=== PATIENT | female | born 1990 | race Caucasian/White ===

== ENCOUNTER → 2021-08-18 | Outpatient (CLI) | payer OTHER, SELFPAY ==
[2021-08-18 16:37] LABS: Amphetamine Urine VISTA NEGATIVE (<1000 ng/mL); Barbiturate Urine VISTA NEGATIVE (< 200 ng/mL); Benzodiazepine Urine VISTA NEGATIVE (< 200 ng/mL); Cocaine Urine VISTA NEGATIVE (< 300 ng/mL); Ecstacy Urine VISTA NEGATIVE (< 500 ng/mL); Methadone Urine VISTA NEGATIVE (< 300 ng/mL); PCP Urine VISTA NEGATIVE (< 25 ng/mL); THC Urine VISTA NEGATIVE (< 50 ng/mL); Vista UDS pH Range 4
[2021-08-20 21:07] LABS: Chlamydia By Nucleic Acid AMP Positive (Negative)
[2021-08-20 21:22] LABS: Gonococcus By Nucleic Acid AMP Negative (Negative)
[2021-08-26 16:16] LABS: HPV Reflexed? NOT INDICATED
== END | disposition home or self-care (01) ==
LOC: LABSPEC 16:03
PROVIDERS: Referring Provider Obstetrics & Gynecology; Visit Provider Obstetrics & Gynecology
DX: Z34.00 Encounter for supervision of normal first pregnancy, unspecified trimester (principal)
CPT/HCPCS: 80307; 87086; 87088; 87491; 87591; 88175; G0145

== ENCOUNTER → 2021-08-21 | Outpatient (CLI) | payer OTHER, SELFPAY ==
[2021-08-21 13:28] LABS: Absolute Neutrophil Count 7.2 X10^3/uL (2.0-7.7); Basophil# 0.05 X10^3/uL; Basophil% 0.5 % (0-1); Eosinophil# 0.07 X10^3/uL; Eosinophils% 0.7 % (0-5); Hematocrit 36.7 % (37-47); Hemoglobin 13.1 g/dL (12.0-15.0); Lymphocyte % 14.8 % (19-41); Mean Corp Hgb Conc 35.7 g/dL (32-36); Mean Corpuscular Hgb 31.5 pg (27.0-32.0); Mean Corpuscular Volume 88.2 fL (81-99); Mean Platelet Vol. 9.6 fl (6.2-12.0); Monocyte# 0.66 X10^3/uL; NRBC Flagged by Analyzer 0 % (0-5); Neutrophil # 7.22 X10^3/uL (2.7-7.7); Neutrophil % 76.7 % (47-70); Platelet Count 231 K/mm3 (150-450); RBC Distribution Width CV 12.7 % (11.6-14.6); RBC Distribution Width SD 41.2 fl (35.1-43.9); Red Blood Count 4.16 M/mm3 (4.2-5.4); White Blood Count 9.4 K/mm3 (4.4-11.0)
[2021-08-21 14:33] LABS: HIV - WCH Non-Reactive (Nonreactive); Hepatitis B Surface Antigen Non-Reactive (Nonreactive); Hepatitis C Antibody Non-Reactive (Nonreactive); Rubella IgG Reactive (Nonreactive); Syphilis Antibodies Non-reactive
== END | disposition home or self-care (01) ==
LOC: PAVLAB 13:08
PROVIDERS: Referring Provider Obstetrics & Gynecology; Visit Provider Obstetrics & Gynecology
DX: Z34.00 Encounter for supervision of normal first pregnancy, unspecified trimester (principal)
CPT/HCPCS: 36415; 85025; 86703; 86762; 86780; 86803; 86850; 86900; 86901; 87340

== ENCOUNTER → 2021-09-12 | Outpatient (CLI) | payer OTHER, SELFPAY ==
[2021-09-15 21:06] LABS: Chlamydia By Nucleic Acid AMP Negative (Negative)
[2021-09-15 21:40] LABS: Gonococcus By Nucleic Acid AMP Negative (Negative)
== END | disposition home or self-care (01) ==
LOC: LABSPEC 09-15 07:52
PROVIDERS: Visit Provider Obstetrics & Gynecology
DX: O98.819 Other maternal infectious and parasitic diseases complicating pregnancy, unspecified trimester (principal); A74.9 Chlamydial infection, unspecified; Z3A.00 Weeks of gestation of pregnancy not specified
CPT/HCPCS: 87491; 87591

== ENCOUNTER → 2021-12-30 | Outpatient (CLI) | payer OTHER, SELFPAY ==
[2021-12-30 11:20] LABS: Absolute Lymphocyte Count 1.28 X10^3/uL (0.83-4.51); Absolute Neutrophil Count 6.7 X10^3/uL (2.0-7.7); Basophil# 0.03 X10^3/uL; Basophil% 0.3 % (0-1); Eosinophil# 0.13 X10^3/uL; Eosinophils% 1.4 % (0-5); Hemoglobin 11.6 g/dL (12.0-15.0); Lymphocyte # 1.28 X10^3/ul (0.83-4.51); Lymphocyte % 14.2 % (19-41); Mean Corp Hgb Conc 36.3 g/dL (32-36); Mean Corpuscular Hgb 34.4 pg (27.0-32.0); Mean Platelet Vol. 9.7 fl (6.2-12.0); Monocyte# 0.79 X10^3/uL; Monocyte% 8.8 % (0-10); NRBC Flagged by Analyzer 0 % (0-5); Neutrophil % 74.5 % (47-70); Platelet Count 165 K/mm3 (150-450); RBC Distribution Width CV 13.5 % (11.6-14.6); RBC Distribution Width SD 46.5 fl (35.1-43.9); Red Blood Count 3.37 M/mm3 (4.2-5.4)
[2021-12-30 11:39] LABS: Glucose Challenge Gest 1H 50g 122 mg/dL (70-140)
--- NOTE | 2021-12-30 12:10 | US_ITS ---
STUDY: SECOND AND THIRD TRIMESTER OBSTETRICAL ULTRASOUND - TWIN REASON FOR EXAM: Female, 31 years old. LMP: 06/16/2021. Growth. TECHNIQUE: Transabdominal TECHNICAL QUALITY: Adequate. COMPARISON: None. FINDINGS: There are two intrauterine fetuses. Two discrete placenta common consistent with a dichorionic . The placenta for baby A is posterior in location and grade 0 in appearance. The placenta for baby B is anterior in location and grade 0 in appearance The amniotic membrane cannot be visualized. There is a normal amniotic fluid volume within each amniotic sac. The uterine wall is normal. There is a competent closed cervical os. The cervix measures 3.8 cm in length. The bilateral adnexal regions are visualized. Fetus A demonstrates cardiac activity with a heart rate of 138 bpm. Fetus ?A? is in a cephalic presentation. Fetus B demonstrates cardiac activity with a heart rate of 123 bpm. Fetus B is in a transverse position with head to the maternal right. FETUS A BIOMETRY: BPD: 7.2 cm: 28 weeks, 6 days HC: 25.73 cm: 28 weeks, 0 days AC: 23.44 cm: 27 weeks, 5 days FL: 4.85 cm: 26 weeks, 2 days CI: 83.07 FL/BPD: 67.42 FL/HC: 18.87 FL/AC: 20.71 HC/AC: 1.1 age by current US: 27 weeks, 1 days. SONDRA by current US: 03/28/2022. Estimated weight: 1084 grams, +/- 163 grams, 18 % Age by LMP: 28 weeks, 1 days. SONDRA by LMP: 03/23/2020. FETUS B BIOMETRY: BPD: 6.92 cm: 27 weeks, 6 days HC: 25.63 cm: 27 weeks, 6 days AC: 22.33 cm: 26 weeks, 5 days FL: 5.02 cm: 27 weeks, 0 days CI: 81.80 FL/BPD: 72.52 FL/HC: 19.5 FL/AC: 22.48 HC/AC: 1.15 age by current US: 27 weeks, 0 days. SONDRA by current US: 03/31/2022. Estimated weight: 018 grams, +/- 153 grams, 9.3 %. Age by LMP: 28 weeks, 1 days. SONDRA by LMP: 03/23/2022.. IMPRESSION: 1. Live dichorionic twin intrauterine . 2. Baby A demonstrates a gestational age of 27 weeks, 1 day. SONDRA is 03/28/2022. EFW of 1084 g Posterior grade 0 placenta. Vertex presentation. 3. Baby B demonstrates a mean gestational age of 27 weeks 0 days with an SONDRA of 03/31/2022. EFW 1018 g. Anterior grade 0 placenta. Transverse presentation with head to maternal right. Electronically Signed: Al Coleman DO at 23:38 EDT , STUDY: SECOND AND THIRD TRIMESTER OBSTETRICAL ULTRASOUND - TWIN REASON FOR EXAM: Female, 31 years old. LMP: 06/16/2021. Growth. TECHNIQUE: Transabdominal TECHNICAL QUALITY: Adequate. COMPARISON: None. FINDINGS: There are two intrauterine fetuses. Two discrete placenta common consistent with a dichorionic . The placenta for baby A is posterior in location and grade 0 in appearance. The placenta for baby B is anterior in location and grade 0 in appearance The amniotic membrane cannot be visualized. There is a normal amniotic fluid volume within each amniotic sac. The uterine wall is normal. There is a competent closed cervical os. The cervix measures 3.8 cm in length. The bilateral adnexal regions are visualized. Fetus A demonstrates cardiac activity with a heart rate of 138 bpm. Fetus ?A? is in a cephalic presentation. Fetus B demonstrates cardiac activity with a heart rate of 123 bpm. Fetus B is in a transverse position with head to the maternal right. FETUS A BIOMETRY: BPD: 7.2 cm: 28 weeks, 6 days HC: 25.73 cm: 28 weeks, 0 days AC: 23.44 cm: 27 weeks, 5 days FL: 4.85 cm: 26 weeks, 2 days CI: 83.07 FL/BPD: 67.42 FL/HC: 18.87 FL/AC: 20.71 HC/AC: 1.1 age by current US: 27 weeks, 1 days. SONDRA by current US: 03/28/2022. Estimated weight: 1084 grams, +/- 163 grams, 18 % Age by LMP: 28 weeks, 1 days. SONDRA by LMP: 03/23/2020. FETUS B BIOMETRY: BPD: 6.92 cm: 27 weeks, 6 days HC: 25.63 cm: 27 weeks, 6 days AC: 22.33 cm: 26 weeks, 5 days FL: 5.02 cm: 27 weeks, 0 days CI: 81.80 FL/BPD: 72.52 FL/HC: 19.5 FL/AC: 22.48 HC/AC: 1.15 age by current US: 27 weeks, 0 days. SONDRA by current US: 03/31/2022. Estimated weight: 018 grams, +/- 153 grams, 9.3 %. Age by LMP: 28 weeks, 1 days. SONDRA by LMP: 03/23/2022.. US/OB Limited With Biometrics IMPRESSION: 1. Live dichorionic twin intrauterine . 2. Baby A demonstrates a gestational age of 27 weeks, 1 day. SONDRA is 03/28/2022. EFW of 1084 g Posterior grade 0 placenta. Vertex presentation. 3. Baby B demonstrates a mean gestational age of 27 weeks 0 days with an SONDRA of 03/31/2022. EFW 1018 g. Anterior grade 0 placenta. Transverse presentation with head to maternal right. Electronically Signed: Al Coleman DO at 23:38 EDT Reading Location ID and State: [address] [place] [address] Tel [phone], Service support ,
== END | disposition home or self-care (01) ==
LOC: US 12:09
PROVIDERS: Referring Provider Obstetrics & Gynecology; Visit Provider Obstetrics & Gynecology
DX: O30.009 Twin pregnancy, unspecified number of placenta and unspecified number of amniotic sacs, unspecified trimester (principal); Z3A.25 25 weeks gestation of pregnancy
CPT/HCPCS: 36415; 76816; 82950; 85025

== ENCOUNTER 2022-02-23 11:45 | Outpatient (CLI) | payer OTHER, SELFPAY ==
[2022-02-23 12:03] VITALS: BP 102/61; PULSE 80
[2022-02-23 12:05] VITALS: BMI 26.5
--- NOTE | 2022-02-23 12:12 | US_ITS ---
STUDY: OBSTETRICAL ULTRASOUND - BIOPHYSICAL PROFILE REASON FOR EXAM: Female, 31 years old twin gestation . Twin A LMP: 06/16/2021. PRIOR ULTRASOUND: Comparison is made with prior study 12/30/2021. TECHNIQUE: Transabdominal TECHNICAL QUALITY: Adequate. FINDINGS: There is a single intrauterine fetus. The fetus is in a cephalic presentation. There is demonstrated cardiac activity with a heart rate of 133 bpm. There is a normal amniotic fluid volume. The largest amniotic fluid pocket measures 4.75 cm. The amniotic fluid index (BISI) is within normal limits. cm. The placenta is posterior in location and is not low lying. There are Grade 2 placental changes. Age by LMP: 36 weeks, 0 days. SONDRA by LMP: 03/23/2022. age by prior US: 35 weeks, 2 days. SONDRA by prior US: 03/28/2022. BIOPHYSICAL PROFILE: Breathing Movements (FBM): 2 Gross Body Movements (GBM): 2 Tone (FT): 2 Amniotic Fluid Volume (AFV): 2 TOTAL SCORE: 8 / 8 IMPRESSION: Normal biophysical profile of 11/17. Electronically Signed: Hamlet Diop MD at 14:31 EST , STUDY: OBSTETRICAL ULTRASOUND - BIOPHYSICAL PROFILE REASON FOR EXAM: Female, 31 years old twin gestation . . Twin B. LMP: 06/16/2021 PRIOR ULTRASOUND: Comparison is made with prior study 12/30/2021. TECHNIQUE: Transabdominal TECHNICAL QUALITY: Adequate. FINDINGS: There is a single intrauterine fetus. The fetus is in an transverse lie with the head on the maternal left side. There is demonstrated cardiac activity with a heart rate of 138 bpm. There is a normal amniotic fluid volume. The largest amniotic fluid pocket measures 4.33 cm. The amniotic fluid index (BISI) is within normal limits. The placenta is anterior in location and is not low lying. There are Grade 1 placental changes. Age by LMP: 36 weeks, 0 days. SONDRA by LMP: 03/23/2022. age by prior US: 35 weeks, 2 days. SONDRA by prior US: 03/28/2022. BIOPHYSICAL PROFILE: Breathing Movements (FBM): 2 Gross Body Movements (GBM): 2 Tone (FT): 2 Amniotic Fluid Volume (AFV): 2 TOTAL SCORE: US/Biophysical Prof W/O Non Stres IMPRESSION: Normal biophysical profile of 11/17. Electronically Signed: Hamlet Diop MD at 14:32 EST ,
[2022-02-25 22:07] LABS: Chlamydia By Nucleic Acid AMP Negative (Negative)
[2022-02-26 15:48] LABS: Gonococcus By Nucleic Acid AMP Negative (Negative)
== END 2022-02-23 14:22 | disposition home or self-care (01) ==
LOC: WPOUT 11:47 → WP 11:47
PROVIDERS: Obstetrics & Gynecology; Referring Provider Registered Nurse; Visit Provider Registered Nurse
DX: O30.003 Twin pregnancy, unspecified number of placenta and unspecified number of amniotic sacs, third trimester (principal); Z3A.35 35 weeks gestation of pregnancy
CPT/HCPCS: 59025; 59050; 76819; 87081; 87491; 87591

== ENCOUNTER → 2022-03-02 | Outpatient (CLI) | payer OTHER, SELFPAY ==
--- NOTE | 2022-03-02 11:26 | US_ITS ---
EXAM: US BIOPHYSICAL PROFILE WITHOUT NON-STRESS TESTING CLINICAL INDICATION: twins TECHNIQUE: Real-time ultrasound of the maternal pelvis for biophysical profile evaluation with image documentation. This report was created using rScriptor report generation technology. COMPARISON: None. FINDINGS: BREATHING MOVEMENTS: Present. Score 2/2. GROSS BODY MOVEMENTS: Present. Score 2/2. TONE: Present. Score 2/2. QUALITATIVE AMNIOTIC FLUID VOLUME: See below. PRESENTATION: Twin A is in cephalic presentation with cardiac rate of 129 bpm. Fundal placenta. Amniotic fluid index is normal with largest amniotic pocket measuring 5.8 x 4.1 cm. Biophysical profile score is 8/8. Twin B is in cephalic presentation with cardiac rate of 148 bpm. Anterior placenta. Amniotic fluid index is normal with largest pocket measuring 9.1 x 4.4 cm. Biophysical profile score is 8/8. IMPRESSION: Normal biophysical profile for twin gestation. Electronically Signed: Antonio Hickman MD at 15:28 EST , EXAM: US BIOPHYSICAL PROFILE WITHOUT NON-STRESS TESTING CLINICAL INDICATION: twins TECHNIQUE: Real-time ultrasound of the maternal pelvis for biophysical profile evaluation with image documentation. This report was created using [employer] report generation technology. COMPARISON: None. FINDINGS: BREATHING MOVEMENTS: Present. Score 2/2. GROSS BODY MOVEMENTS: Present. Score 2/2. TONE: Present. Score 2/2. QUALITATIVE AMNIOTIC FLUID VOLUME: See below. FETUS: Twin live gestation with normal biophysical profile score of 8/8. PRESENTATION: Twin A in cephalic presentation with cardiac rate of 129 bpm. Fundal placenta. Amniotic fluid index is normal with largest pocket measuring 5.8 x 4.1 cm. Twin B is in cephalic presentation with cardiac rate of 148 bpm. Anterior placenta. Normal amniotic fluid index with largest pocket measuring 5.1 x 4.4 cm. US/Biophysical Prof W/O Non Stres IMPRESSION: Normal biophysical profile score for twin gestation. Electronically Signed: Antonio Hickman MD at 15:33 EST ,
== END | disposition home or self-care (01) ==
LOC: US 11:25
PROVIDERS: Referring Provider Obstetrics & Gynecology; Visit Provider Obstetrics & Gynecology
DX: O30.009 Twin pregnancy, unspecified number of placenta and unspecified number of amniotic sacs, unspecified trimester (principal)
CPT/HCPCS: 76819

== ENCOUNTER → 2022-03-11 | Outpatient (CLI) | payer OTHER, SELFPAY ==
--- NOTE | 2022-03-11 12:36 | US_ITS ---
STUDY: OBSTETRICAL ULTRASOUND - BIOPHYSICAL PROFILE REASON FOR EXAM: Female, 31 years old twin well being . Twin A. LMP: 06/16/2021. PRIOR ULTRASOUND: Comparison is made with prior study dated 03/02/2022. TECHNIQUE: Transabdominal TECHNICAL QUALITY: Adequate. FINDINGS: There is a single intrauterine fetus. The fetus is in a cephalic presentation. There is demonstrated cardiac activity with a heart rate of 143 bpm. There is a normal amniotic fluid volume. The largest amniotic fluid pocket measures 4 cm. The amniotic fluid index (BISI) is within normal limits. The placenta is fundal in location. There are Grade 3 placental changes. Age by LMP: 38 weeks, 2 days. SONDRA by LMP: 03/23/2022. BIOPHYSICAL PROFILE: Breathing Movements (FBM): 2 Gross Body Movements (GBM): 2 Tone (FT): 2 Amniotic Fluid Volume (AFV): 2 TOTAL SCORE: 8 / 8 IMPRESSION: Normal biophysical profile of 8/8. Electronically Signed: Hamlet Diop MD at 14:46 EST , STUDY: OBSTETRICAL ULTRASOUND - BIOPHYSICAL PROFILE REASON FOR EXAM: Female, 31 years old twin well being . Twin B LMP: 06/16/2021 PRIOR ULTRASOUND: Comparison is made with prior study 03/02/2022. TECHNIQUE: Transabdominal TECHNICAL QUALITY: Adequate. FINDINGS: The fetus is in a cephalic presentation. There is demonstrated cardiac activity with a heart rate of 155 bpm. There is a normal amniotic fluid volume. The largest amniotic fluid pocket measures 5 cm. The amniotic fluid index (BISI) is within normal limits. cm. The placenta is anterior in location and is not low lying. There are Grade 3 placental changes. Age by LMP: 38 weeks, 2 days. SONDRA by LMP: 03/23/2022. BIOPHYSICAL PROFILE: Breathing Movements (FBM): 2 Gross Body Movements (GBM): 2 Tone (FT): 2 Amniotic Fluid Volume (AFV): 2 TOTAL SCORE: US/Biophysical Prof W/O Non Stres IMPRESSION: Normal biophysical profile of 11/17. Electronically Signed: Hamlet Diop MD at 14:47 EST ,
== END | disposition home or self-care (01) ==
LOC: US 12:30
PROVIDERS: Visit Provider Obstetrics & Gynecology
DX: O30.009 Twin pregnancy, unspecified number of placenta and unspecified number of amniotic sacs, unspecified trimester (principal); Z3A.00 Weeks of gestation of pregnancy not specified
CPT/HCPCS: 76819

== ENCOUNTER 2022-03-12 07:00 | Inpatient (IN) | payer OTHER, SELFPAY ==
[2022-03-12] VITALS (31 sets, daily range): BP systolic 112–142; BP diastolic 76–95; PULSE 68–98; TEMP 36.2–37.2; O2SAT 96–100; BMI 28.0
--- NOTE | 2022-03-12 07:56 | HP.PCM.OB_ITS ---
HPI - General General Date of Admission: 03/12/22 HPI Narrative SYLVIA LAZAR, is a 31 F who presents for IOL no vb lof good fm no regular ctx. Maternal Data Information SONDRA Calculator Estimated Delivery Date Method Current WG Current Estimate 03/23/22 LMP (Certain) 38w 3d Other Estimates 03/24/22 Ultrasound #1 38w 2d # 2 PFSH PFSH Medical History Cervical cancer screening Home Medications prenat.vits,josé manuel,oph-mgen-inxal 1 tab PO DAILY 08/06/21 [History Last Taken 02/23/22 09:00] breast pump #1 ea 12/30/21 [Rx Last Taken Unknown] Allergy/AdvReac Type Severity Reaction Status Date / Time amoxicillin [From Amoxil] Allergy Intermediate hives Verified 03/11/22 13:29 Surgical History Labadie teeth extracted Social History adopted: No household members: spouse current occupational status: employed current occupation: [employer] pets and animals: Yes (avoid litter box) pets and animals: cat(s) Smoking Status: Never smoker alcohol intake: never substance use type: does not use do you feel safe at home: Yes additional social history: Chavo Castaneda History 1 Elective abortions Hx Para 0 Spontaneous abortions Hx # Term Pregnancies Ectopic pregnancies Hx # Pregnancies Multiple births # of living children Visit Details Expected Delivery Route/Plan Labor Preferences- CB/BF classes: recommended. labor support person: [] labor intervention preferences: [] pain management options preferred: [] cut cord/dad catch: [] : [] PP control planned: [] discussed possible routes of delivery and associated risks: [] special requests: [] Plans Covid status: [discussed and declined.] Flu vaccine: [discussed and declined] Tdap vaccine: [declined] Rhogam: [Apos] LARC form signed: [completed] Problem list reviewed and updated with the most current plan of care details and appropriate orders placed. Relevant counseling for the gestational age provided. Continue routine care and follow up unless otherwise noted in visit notes/problem list details OB Flowsheet Initial Weight: Not Recorded Date -?-?-?-?-?-?-?-?-?-?-?-?- EGA Weight BP Urine Prot -?-?-?-?-?-?-?-?-?-?-?-?- Glucose FHR FuHt Pres Dilation -?-?-?-?-?-?-?-?-?-?-?-?- Effaced St Visit Note 08/18/21 -?-?-?-?-?-?-?-?-?-?-?-?- 9w 0d 109 lb 8 oz 110/70 -?-?-?-?-?-?-?-?-?-?-?-?- A 160 -?-?-?-?-?-?-?-?-?-?-?-?- B A -?-?-?-?-?-?-?-?-?-?-?-?- B -?-?-?-?-?-?-?-?-?--?-?-?- A -?-?-?-?-?-?-?-?-?-?-?-?- B A JV- di/di twins on ultrasound both with strong heart tones, separate yolk and gestational sacs. delta sign visualized. JV- di/di twins on ultrasoun d both with strong heart tones and consistent with LMP. separate yolk and gestational sacs. delta sign visualized. -?-?-?-?-?-?-?-?-?-?-?-?- B 09/12/21 -?-?-?-?-?-?-?-?-?-?-?-?- 12w 4d 110 lb 8 oz 106/60 Nega tive -?-?-?-?-?-?-?-?-?-?-?-?- Negative A 163 -?-?-?-?-?-?-?-?-?-?-?-?- B 154 A -?--?-?-?-?-?-?-?-?-?-?-?- B -?-?-?-?-?-?-?-?-?-?-?-?- A -?-?-?-?-?-?-?-?-?-?-?-?- B A JV- no complaint s today. Chlamydia YAMIL today. mfm ultrasound ordered. -?-?-?-?-?-?-?-?-?-?-?-?- B 10/16/21 -?-?-?-?-?-?-?-?-?-?-?-?- 17w 3d 115 lb 90/56 -?-?-?-?-?-?-?-?-?-?-?-?- A 150 -?-?-?-?-?-?-?-?-?-?-?-?- B 145 A -?-?-?-?-?-?-?-?-?-?-?-?- B -?-?-?-?-?-?-?-?-?-?-?-?- A -?-?-?-?-?-?-?-?-?-?-?-?- B A SM- discussed cammie kendall has moved to [facility] transfer care. no vb lof cramping -?-?-?-?-?-?-?-?-?-?-?-?- B 11/11/21 -?-?-?-?-?-?-?-?-?-?-?-?- 21w 1d 123 lb 4 oz 100/66 Nega tive -?-?-?-?-?-?-?-?-?-?-?-?- Negative A 150 -?-?-?-?-?-?-?-?-?-?-?-?- B 139 A Cephalic -?-?-?-?-?-?-?-?-?-?-?-?- B Transverse -?-?-?-?-?-?-?-?-?-?-?-?- A -?-?-?-?-?-?-?-?-?-?-?-?- B A JV- pt has follo w up growth in 2 weeks. has questions about feeling fatigued. recommend compression stockings. also has a bat in her house and wonders if should get a rabies vaccine. per the cdc, it is not contraindicated in but usually only given after exposure or bite. -?-?-?-?-?-?-?-?-?-?-?-?- B 12/08/21 -?-?-?-?-?-?--?-?-?-?-?-?- 25w 0d 126 lb 92/64 -?-?-?-?-?-?-?-?-?-?-?-?- A 145 -?-?-?-?-?-?-?-?-?-?-?-?- B 150 A Cephalic -?-?-?-?-?-?-?-?-?-?-?-?- B Cephalic -?-?-?-?-?-?-?-?-?-?-?-?- A -?-?-?-?-?-?-?-?-?-?-?-?- B A SM- no vb lof go od fm no regular ctx SM- no vb lof good fm no reg ular ctx. order growth US -?-?-?-?-?-?-?-?-?-?-?-?- B 12/30/21 -?-?-?-?-?-?-?-?-?-?-?-?- 28w 1d 130 lb 6 oz 112/73 Nega tive -?-?-?-?-?-?-?-?-?-?-?-?- Negative A 141 -?-?-?-?-?-?-?-?-?-?-?-?- B 131 A Cephalic -?-?-?-?-?-?-?-?-?-?-?-?- B Transverse -?-?-?-?-?-?-?-?-?-?-?-?- A -?-?-?-?-?-?-?-?-?-?-?-?- B A JV- growth scan today. no complaints. PTL precautions discussed. JV- growth scan today. no co mplaints. PTL precautions discussed. normal 28 week labs/glucola. -?-?-?-?-?-?-?-?-?-?-?-?- B 01/14/22 -?-?-?-?-?-?-?-?-?-?-?-?- 30w 2d 134 lb 103/70 Negative -?-?-?-?-?-?-?-?-?-?-?-?- Negative A 139 -?-?-?-?-?-?-?-?-?-?-?-?- B 154 A Cephalic -?-?-?-?-?-?-?-?-?-?-?-?- B Cephalic -?-?-?-?-?-?-?-?-?-?-?-?- A -?-?-?-?-?-?-?-?-?-?-?-?- B A JV- IUGR baby B at 9th %, getting monthly scans per mfm . no other recommendtions. likely needs testing starting 32 weeks. declines tdap and flu today -?-?-?-?-?-?-?-?-?-?-?-?- B 01/26/22 -?-?-?--?-?-?-?-?-?-?-?-?- 32w 0d 141 lb 4 oz 113/72 Nega tive -?-?-?-?-?-?-?-?-?-?-?-?- Negative A 134 -?-?-?-?-?-?-?-?-?-?-?-?- B 146 A Cephalic -?-?-?-?-?-?-?-?-?-?-?-?- B Transverse -?-?-?-?-?-?-?-?-?-?-?-?- A -?-?-?-?-?-?-?-?-?-?-?-?- B A LC-MFM following growth, obtaining BPPs.feeling well. active fetuses, no vb,lof,ctx. declines tdap,flu. -?-?-?-?-?-?-?-?-?-?-?-?- B 02/09/22 -?-?-?-?-?-?-?-?-?-?-?-?- 34w 0d 143 lb 4 oz 118/73 Nega tive -?-?-?-?-?-?-?-?-?-?--?-?- Negative A 135 -?-?-?-?-?-?-?-?-?-?-?-?- B 140 A Cephalic -?-?-?-?-?-?-?-?-?-?-?-?- B Cephalic -?-?-?-?-?-?-?-?-?-?-?-?- A -?-?-?-?-?-?-?-?-?-?-?-?- B A SM- MFM ultrasou nd today, confirm growth percentiles. -?-?-?-?-?-?-?-?-?-?-?-?- B 02/23/22 -?-?-?-?-?-?-?-?-?-?-?-?- 36w 0d 146 lb 4 oz 118/83 Nega tive -?-?-?-?-?-?-?-?-?-?-?-?- Negative A 150 -?-?-?-?-?-?-?-?-?-?-?-?- B 140 A Cephalic -?-?-?-?-?-?-?-?-?-?-?-?- B Cephalic -?-?-?-?-?-?-?-?-?-?-?-?- A -?-?-?-?-?-?-?-?-?-?-?-?- B A SM- no vb lof go od fm no regular ctx nl growth on last scn plan weekly BPPs and IOL at 38 weeks. SM- no vb lof good fm no reg ular ctx nl growth on last scn plan weekly BPPs and IOL at 38-39 weeks. -?-?-?-?-?-?-?-?-?-?-?-?- B 03/02/22 -?-?-?-?-?-?-?-?-?-?-?-?- 37w 0d 150 lb 115/77 Negative -?-?-?-?-?-?-?-?-?-?-?-?- Negative A 145 -?-?-?-?-?-?-?-?-?-?-?-?- B 140 A Cephalic -?-?-?-?-?-?-?-?-?-?-?-?- B Cephalic 1.5 -?-?-?-?-?-?-?-?-?-?-?-?- 70 A -2 -?-?-?-?-?-?-?-?-?-?-?-?- B A SM- no vb lof go od FM x 2 bpp reassuring today -?-?-?-?-?-?-?-?-?-?-?-?- B 03/11/22 -?-?-?-?-?-?-?-?-?-?-?-?- 38w 2d 153 lb 8 oz 117/79 Nega tive -?-?-?-?-?-?-?-?-?-?-?-?- Negative A 143 -?-?-?-?-?-?-?-?-?-?-?-?- B 155 A Cephalic -?-?-?-?-?-?-?-?-?-?-?-?- B Cephalic 1.5 -?-?-?-?-?-?-?-?-?-?-?-?- 85 A -1 -?-?-?-?-?-?-?-?-?-?-?-?- B A JV- plan for IOL tomorrow with pit/arom. babies bpp's today both 11/17 -?-?-?-?-?-?-?-?-?-?-?-?- B 03/12/22 -?-?-?-?-?-?-?-?-?-?-?-?- 38w 3d 153 lb 121/80 -?-?-?-?-?-?-?-?-?-?-?-?- A -?-?-?-?-?-?-?-?-?-?-?-?- B A -?-?-?-?-?-?-?-?-?-?-?-?- B -?-?-?-?-?-?-?-?-?-?-?-?- A -?-?-?-?-?-?-?-?-?-?-?-?- B A -?-?-?-?-?-?-?-?-?-?-?-?- B NST FHR Rate Baby A Baseline: 130 Variability:: Moderate Accelerations:: 15 x 15 Decelerations:: None NST Reactive:: Yes FHR Category:: Category I Uterine Activity:: irregular FHR Rate Baby B Baseline: 150 Accelerations:: 15 x 15 NST Reactive:: Yes FHR Category:: Category I Uterine Activity:: no regular ROS Constitutional Constitutional: Reports systems reviewed and no addt'l complaints, except as documented Eyes Eyes: Denies change in vision ENT HEENT: Reports systems reviewed and no addt'l complaints, except as documented; Denies headache(s) Cardiovascular Cardiovascular: Reports systems reviewed and no addt'l complaints, except as documented; Denies chest pain or dyspnea Respiratory/Chest Respiratory/Chest: Reports systems reviewed and no addt'l complaints, except as documented Gastrointestinal Gastrointestinal: Reports systems reviewed and no addt'l complaints, except as documented; Denies abdominal pain Genitourinary Genitourinary: Reports systems reviewed and no addt'l complaints, except as documented, contractions Details: present (irregular) and movement Details: present; Denies dysuria or genital lesions Musculoskeletal Musculoskeletal: Reports systems reviewed and no addt'l complaints, except as documented Neurologic Neurologic: Reports systems reviewed and no addt'l complaints, except as doc umented Endocrine Endocrinology: Reports systems reviewed and no addt'l complaints, except as documented Vital Signs Vital Signs Vital Signs: 03/12/22 07:48 03/12/22 07:48 03/12/22 07:48 Temperature 98.1 F Pulse Rate 95 Blood Pressure 121/80 H BP Systolic 121 BP Diastolic 80 Weight Weight: 153 lb Body Mass Index (BMI) 28.0 Physical Exam Const alert, oriented x3, no apparent distress and healthy appearing HEENT normocephalic and moist oral mucous membranes Head and Scalp: atraumatic Neck full ROM, no lymphadenopathy, supple and thyroid normal General: trachea midline Lymph Lymphatic: no lymphadenopathy noted Chest inspection of chest normal Resp normal respiratory effort Cardio regular rate GI normal to inspection, nondistended, normoactive bowel sounds, soft to palpation and non-tender Inspection: gravid external exam normal Manual OB Exam: estimated gestational size appropriate, presentation cephalic (x 2), dilated, effaced and station Extremity normal to inspection General Extremity: Negative for edema Skin no rashes or lesions noted Neuro no focal motor deficits and deep tendon reflexes 2+ bilaterally Motor Exam: strength 5/5 throughout and clonus absent Psych mental status grossly normal Labs Labs Labs: Blood Type A POSITIVE Antibody Screen NEGATIVE Hct 32.0 % (37-47) L Hgb 11.6 g/dL (12.0-15.0) L Obstetrics US Syphilis Total Ab Non-reactive Rubella IgG Antibody Reactive (Nonreactive) Hep Bs Antigen Non-Reactive (Nonreactive) Chlamydia DNA (SONY) Negative (Negative) Neisseria gonorrhoeae DNA (SONY) Negative (Negative) HIV 1&2 Antibody Non-Reactive (Nonreactive) Glucose 1 Hr 50 gm 122 mg/dL (70-140) Assessment & Plan (1) Supervision of normal first : COMMENT: PRR SONDRA:03/23/22 girls Poppy and Scarlet SP:Leonel (2) : QUALIFIERS: Weeks of gestation: 37 weeks Qualified Code(s): Z3A.37 - 37 weeks gestation of COMMENT: GBS neg., anatomy nl, declined genetic and carrier screen. (3) Twin gestation with first : COMMENT: di/di on first scan, US every 4 wks for growth, wkly BPP after 36 wks deliver 38-39 next scan 02/16 nl growth 22 and 27% (4) Chlamydia infection affecting : COMMENT: 08/21/21 diagnosis and rx rpt testing 2nd week September and at 36 weeks -neg (5) Encounter for induction of labor: COMMENT: cytotec PLAN: Plan Patient presents IOL, plan management for with cytotec then pitocin if needed. Pain management: prefers natural management but open to epidural. GBS negative. Management of any complications: twins- vertex I have reviewed the [facility] and made any clinically relevant updates.
--- NOTE | 2022-03-12 07:56 | PCM.HP.OB ---
HPI - General General Date of Admission: 03/12/22 HPI Narrative SYLVIA LAZAR, is a 31 F who presents for IOL no vb lof good fm no regular ctx. Maternal Data Information SONDRA Calculator Estimated Delivery Date Method Current WG Current Estimate 03/23/22 LMP (Certain) 38w 3d Other Estimates 03/24/22 Ultrasound #1 38w 2d # 2 PFSH PFSH Medical History Cervical cancer screening Home Medications prenat.vits,josé manuel,[id number] 1 tab PO DAILY 08/06/21 [History Last Taken 02/23/22 09:00] breast pump #1 ea 12/30/21 [Rx Last Taken Unknown] Allergy/AdvReac Type Severity Reaction Status Date / Time amoxicillin [From Amoxil] Allergy Intermediate hives Verified 03/11/22 13:29 Surgical History [place] teeth extracted Social History adopted: No household members: spouse current occupational status: employed current occupation: [employer] pets and animals: Yes (avoid litter box) pets and animals: cat(s) Smoking Status: Never smoker alcohol intake: never substance use type: does not use do you feel safe at home: Yes additional social history: Chavo Castaneda History 1 Elective abortions Hx Para 0 Spontaneous abortions Hx # Term Pregnancies Ectopic pregnancies Hx # Pregnancies Multiple births # of living children Visit Details Expected Delivery Route/Plan Labor Preferences- CB/BF classes: recommended. labor support person: [] labor intervention preferences: [] pain management options preferred: [] cut cord/dad catch: [] : [] PP control planned: [] discussed possible routes of delivery and associated risks: [] special requests: [] Plans Covid status: [discussed and declined.] Flu vaccine: [discussed and declined] Tdap vaccine: [declined] Rhogam: [Apos] LARC form signed: [completed] Problem list reviewed and updated with the most current plan of care details and appropriate orders placed. Relevant counseling for the gestational age provided. Continue routine care and follow up unless otherwise noted in visit notes/problem list details OB Flowsheet Initial Weight: Not Recorded Date <del>?</del> EGA Weight BP Urine Prot <del>?</del> Glucose FHR FuHt Pres Dilation <del>?</del> Effaced St Visit Note 08/18/21 <del>?</del> 9w 0d 109 lb 8 oz 110/70 <del>?</del> A 160 <del>?</del> B A <del>?</del> B <del>?</del> A <del>?</del> B A JV- di/di twins on ultrasound both with strong heart tones, separate yolk and gestational sacs. delta sign visualized. JV- di/di twins on ultrasound both with strong heart tones and consistent with LMP. separate yolk and gestational sacs. delta sign visualized. <del>?</del> B 09/12/21 <del>?</del> 12w 4d 110 lb 8 oz 106/60 Negative <del>?</del> Negative A 163 <del>?</del> B 154 A <del>?</del> B <del>?</del> A <del>?</del> B A JV- no complaints today. Chlamydia YAMIL today. mfm ultrasound ordered. <del>?</del> B 10/16/21 <del>?</del> 17w 3d 115 lb 90/56 <del>?</del> A 150 <del>?</del> B 145 A <del>?</del> B <del>?</del> A <del>?</del> B A SM- discussed patient has moved to [facility]. no vb lof cramping <del>?</del> B 11/11/21 <del>?</del> 21w 1d 123 lb 4 oz 100/66 Negative <del>?</del> Negative A 150 <del>?</del> B 139 A Cephalic <del>?</del> B Transverse <del>?</del> A <del>?</del> B A JV- pt has follow up growth in 2 weeks. has questions about feeling fatigued. recommend compression stockings. also has a bat in her house and wonders if should get a rabies vaccine. per the cdc, it is not contraindicated in but usually only given after exposure or bite. <del>?</del> B 12/08/21 <del>?</del> 25w 0d 126 lb 92/64 <del>?</del> A 145 <del>?</del> B 150 A Cephalic <del>?</del> B Cephalic <del>?</del> A <del>?</del> B A SM- no vb lof good fm no regular ctx SM- no vb lof good fm no regular ctx. order growth US <del>?</del> B 12/30/21 <del>?</del> 28w 1d 130 lb 6 oz 112/73 Negative <del>?</del> Negative A 141 <del>?</del> B 131 A Cephalic <del>?</del> B Transverse <del>?</del> A <del>?</del> B A JV- growth scan today. no complaints. PTL precautions discussed. JV- growth scan today. no complaints. PTL precautions discussed. normal 28 week labs/glucola. <del>?</del> B 01/14/22 <del>?</del> 30w 2d 134 lb 103/70 Negative <del>?</del> Negative A 139 <del>?</del> B 154 A Cephalic <del>?</del> B Cephalic <del>?</del> A <del>?</del> B A JV- IUGR baby B at 9th %, getting monthly scans per [facility] . no other recommendtions. likely needs testing starting 32 weeks. declines tdap and flu today <del>?</del> B 01/26/22 <del>?</del> 32w 0d 141 lb 4 oz 113/72 Negative <del>?</del> Negative A 134 <del>?</del> B 146 A Cephalic <del>?</del> B Transverse <del>?</del> A <del>?</del> B A LC-MFM following growth, obtaining BPPs.feeling well. active fetuses, no vb,lof,ctx. declines tdap,flu. <del>?</del> B 02/09/22 <del>?</del> 34w 0d 143 lb 4 oz 118/73 Negative <del>?</del> Negative A 135 <del>?</del> B 140 A Cephalic <del>?</del> B Cephalic <del>?</del> A <del>?</del> B A SM- MFM ultrasound today, confirm growth percentiles. <del>?</del> B 02/23/22 <del>?</del> 36w 0d 146 lb 4 oz 118/83 Negative <del>?</del> Negative A 150 <del>?</del> B 140 A Cephalic <del>?</del> B Cephalic <del>?</del> A <del>?</del> B A SM- no vb lof good fm no regular ctx nl growth on last scn plan weekly BPPs and IOL at 38 weeks. SM- no vb lof good fm no regular ctx nl growth on last scn plan weekly BPPs and IOL at 38-39 weeks. <del>?</del> B 03/02/22 <del>?</del> 37w 0d 150 lb 115/77 Negative <del>?</del> Negative A 145 <del>?</del> B 140 A Cephalic <del>?</del> B Cephalic 1.5 <del>?</del> 70 A -2 <del>?</del> B A SM- no vb lof good FM x 2 bpp reassuring today <del>?</del> B 03/11/22 <del>?</del> 38w 2d 153 lb 8 oz 117/79 Negative <del>?</del> Negative A 143 <del>?</del> B 155 A Cephalic <del>?</del> B Cephalic 1.5 <del>?</del> 85 A -1 <del>?</del> B A JV- plan for IOL tomorrow with pit/arom. babies bpp's today both 11/17 <del>?</del> B 03/12/22 <del>?</del> 38w 3d 153 lb 121/80 <del>?</del> A <del>?</del> B A <del>?</del> B <del>?</del> A <del>?</del> B A <del>?</del> B NST FHR Rate Baby A Baseline: 130 Variability:: Moderate Accelerations:: 15 x 15 Decelerations:: None NST Reactive:: Yes FHR Category:: Category I Uterine Activity:: irregular FHR Rate Baby B Baseline: 150 Accelerations:: 15 x 15 NST Reactive:: Yes FHR Category:: Category I Uterine Activity:: no regular ROS Constitutional Constitutional: Reports systems reviewed and no addt'l complaints, except as documented Eyes Eyes: Denies change in vision ENT HEENT: Reports systems reviewed and no addt'l complaints, except as documented; Denies headache(s) Cardiovascular Cardiovascular: Reports systems reviewed and no addt'l complaints, except as documented; Denies chest pain or dyspnea Respiratory/Chest Respiratory/Chest: Reports systems reviewed and no addt'l complaints, except as documented Gastrointestinal Gastrointestinal: Reports systems reviewed and no addt'l complaints, except as documented; Denies abdominal pain Genitourinary Genitourinary: Reports systems reviewed and no addt'l complaints, except as documented, contractions Details: present (irregular) and movement Details: present; Denies dysuria or genital lesions Musculoskeletal Musculoskeletal: Reports systems reviewed and no addt'l complaints, except as documented Neurologic Neurologic: Reports systems reviewed and no addt'l complaints, except as documented Endocrine Endocrinology: Reports systems reviewed and no addt'l complaints, except as documented Vital Signs Vital Signs Vital Signs: 03/12/22 07:48 03/12/22 07:48 03/12/22 07:48 Temperature 98.1 F Pulse Rate 95 Blood Pressure 121/80 H BP Systolic 121 BP Diastolic 80 Weight Weight: 153 lb Body Mass Index (BMI) 28.0 Physical Exam Const alert, oriented x3, no apparent distress and healthy appearing HEENT normocephalic and moist oral mucous membranes Head and Scalp: atraumatic Neck full ROM, no lymphadenopathy, supple and thyroid normal General: trachea midline Lymph Lymphatic: no lymphadenopathy noted Chest inspection of chest normal Resp normal respiratory effort Cardio regular rate GI normal to inspection, nondistended, normoactive bowel sounds, soft to palpation and non-tender Inspection: gravid external exam normal Manual OB Exam: estimated gestational size appropriate, presentation cephalic (x 2), dilated, effaced and station Extremity normal to inspection General Extremity: Negative for edema Skin no rashes or lesions noted Neuro no focal motor deficits and deep tendon reflexes 2+ bilaterally Motor Exam: strength 5/5 throughout and clonus absent Psych mental status grossly normal Labs Labs Labs: Blood Type A POSITIVE Antibody Screen NEGATIVE Hct 32.0 % (37-47) L Hgb 11.6 g/dL (12.0-15.0) L Obstetrics US Syphilis Total Ab Non-reactive Rubella IgG Antibody Reactive (Nonreactive) Hep Bs Antigen Non-Reactive (Nonreactive) Chlamydia DNA (SONY) Negative (Negative) Neisseria gonorrhoeae DNA (SONY) Negative (Negative) HIV 1&2 Antibody Non-Reactive (Nonreactive) Glucose 1 Hr 50 gm 122 mg/dL (70-140) Assessment & Plan (1) Supervision of normal first : COMMENT: PRR SONDRA:03/23/22 girls Poppy and Scarlet SP:Leonel (2) : QUALIFIERS: Weeks of gestation: 37 weeks Qualified Code(s): Z3A.37 - 37 weeks gestation of COMMENT: GBS neg., anatomy nl, declined genetic and carrier screen. (3) Twin gestation with first : COMMENT: di/di on first scan, US every 4 wks for growth, wkly BPP after 36 wks deliver 38-39 next scan 02/16 nl growth 22 and 27% (4) Chlamydia infection affecting : COMMENT: 08/21/21 diagnosis and rx rpt testing week September and at 36 weeks -neg (5) Encounter for induction of labor: COMMENT: cytotec PLAN: Plan Patient presents IOL, plan management for with cytotec then pitocin if needed. Pain management: prefers natural management but open to epidural. GBS negative. Management of any complications: twins- vertex I have reviewed the [facility] and made any clinically relevant updates.
[2022-03-12] MEDS: miSOPROStol 25 MCG TABLET VAGINAL ×2 (08:12→12:16)
[2022-03-12] MEDS: Lactated Ringers 1,000 ML 50 ML IV (08:13)
[2022-03-12 08:32] LABS: Absolute Lymphocyte Count 1.13 X10^3/uL (0.83-4.51); Absolute Neutrophil Count 4.8 X10^3/uL (2.0-7.7); Basophil# 0.03 X10^3/uL; Basophil% 0.5 % (0-1); Eosinophil# 0.07 X10^3/uL; Eosinophils% 1.1 % (0-5); Hematocrit 32.5 % (37-47); Hemoglobin 11.5 g/dL (12.0-15.0); Lymphocyte # 1.13 X10^3/ul (0.83-4.51); Lymphocyte % 17.3 % (19-41); Mean Corp Hgb Conc 35.4 g/dL (32-36); Mean Corpuscular Hgb 33.2 pg (27.0-32.0); Mean Corpuscular Volume 93.9 fL (81-99); Mean Platelet Vol. 12.2 fl (6.2-12.0); Monocyte# 0.47 X10^3/uL; Monocyte% 7.2 % (0-10); NRBC Flagged by Analyzer 0 % (0-5); Neutrophil # 4.76 X10^3/uL (2.7-7.7); Neutrophil % 72.7 % (47-70); Platelet Count 119 K/mm3 (150-450); RBC Distribution Width CV 12.8 % (11.6-14.6); RBC Distribution Width SD 43.5 fl (35.1-43.9); Red Blood Count 3.46 M/mm3 (4.2-5.4); White Blood Count 6.5 K/mm3 (4.4-11.0)
[2022-03-12] MEDS: LACTATED RINGERS 500 ML 999 ML IV ×3 (14:06→22:11)
[2022-03-12] MEDS: Lactated Ringers 1,000 ML 150 ML IV (18:46)
[2022-03-12] MEDS: fentaNYL-bupivacaine (epidural) 100 ML BAG EPIDURAL (20:03)
[2022-03-13] VITALS (34 sets, daily range): BP systolic 109–148; BP diastolic 66–95; PULSE 74–135; RESP 14–20; TEMP 36.6–37.8; O2SAT 95–99
--- NOTE | 2022-03-13 | PLAC_PTH ---
PATIENT: SYLVIA LAZAR LOC: WP U#:[id number] AGE/SX: 31/F ROOM: [facility] RE03/12/[address]: Dr. Shyann Velazquez MD : 1990 BED: 1 DIS: 03/16/2022 SPEC #: [id number] RECD: 03/13/22 08:37 STATUS: ESTRELLITA REAmerica #: [id number] TIMOTHY: 03/13/22 00:[address]: Shyann Velazquez DEPT: SURGICAL PATHOLOGY RECD BY: Lasha Leo ENTERED: 03/13/22 10:32 SP TYPE: PLACENTA OTHR DR: Aleisha Primary Care Phys Tissues: Placenta, NOS Procedures: Surgery Specimen Level V HEADER OPERATION: Primary section PRE-OP DIAGNOSIS: Twins TISSUE SUBMITTED: Placenta MICROSCOPIC DIAGNOSIS Twin placenta: Dichorionic and diamniotic twin placenta. Placenta A: Placental disc ? third trimester placenta (400 gm) - Chronic villitis of unknown etiology. See comment. Membranes - no pathologic diagnosis. Umbilical cord ? three blood vessels and no pathologic diagnosis. Placenta B: Placental disc - third trimester placenta (406 gm). - Focal minimal area with chronic villitis of unknown etiology. - Focal area of infarction (1.5 x 1 cm). Membranes - no pathologic diagnosis. Umbilical cord - three blood vessels and no pathologic diagnosis. SJ:kathleen 03/17/2022 COMMENT The areas of chronic villitis of unknown etiology also shows adjacent infarction. MICROSCOPIC DESCRIPTION Slides are reviewed. GROSS DESCRIPTION SPECIMEN: TWIN PLACENTA / CLINICAL INFORMATION: A. Weight: A ? 2.63 kg; B ? 2.4 kg B. Gestational Age: 38 weeks C. Sex: A ? Female, B - Female The placenta consists of two placental disc, two umbilical cord and a dividing membrane. One umbilical cord contains a clip and has been designated placenta A. PLACENTA A (with clip): PLACENTAL WEIGHT (POST FIXATION): 400 gm PLACENTAL DIMENSIONS: 19 x 16 x 2.5 cm PLACENTAL SHAPE: Usual ovoid PLACENTAL WEIGHT FOR GESTATIONAL AGE: Within 10-99th percentile MEMBRANES - Present A. Insertion: Marginal B. Site of rupture from edge: At edge of placental disc C. Color of membrane: Ball-san D. Abnormalities: None UMBILICAL CORD - Present A. Color: Ball-san B. Insertion: Eccentric C. Length: 19 cm D. Diameter: 1.2 cm E. Number of vessels: Three F. Abnormalities: None PLACENTA B: PLACENTAL WEIGHT (POST FIXATION): 406 gm PLACENTAL DIMENSIONS: 20.5 x 15 x 3 cm PLACENTAL SHAPE: Usual ovoid PLACENTAL WEIGHT FOR GESTATIONAL AGE: Within 10-99th percentile MEMBRANES - Present A. Insertion: Marginal B. Site of rupture from edge: At edge of placental disc C. Color of membrane: Ball-sna D. Abnormalities: None UMBILICAL CORD - Present A. Color: Ball-san B. Insertion: Marginal C. Length: 31 cm D. Diameter: 1.5 cm E. Number of vessels: Three F. Abnormalities: None PLACENTAL DISC - Present A. Color of surface: Ball-san B. surface abnormalities: None C. Maternal cotyledons: Intact with minimal tears D. Attached retro placental clot: No clot E. Cut surface: Dark red and spongy F. Lesions: One firm, ball-white lesion at edge of placental disc measuring 1.5 x 1 cm G. Separate clot: 10 x 5 x 3 cm SECTIONS SUBMITTED: 11 cassettes 1. Dividing membrane 2. Placental membrane A, end 3. Umbilical cord, placental end 4. Peripheral membrane placenta A 5. Placental disc A 6. Placental disc A 7. Umbilical cord B, end inked black. 8. Peripheral membranes B 9. Placental disc B 10. Placental disc B 11. Placental disc B, lesion AM:kathleen 03/16/2022 TC:3 CPT: 61114 x2
[2022-03-13] MEDS: Oxytocin 15 Units/NS 250ml 15 UNITS/250 ML IV.SOLN 2 UNITS IV (00:25)
[2022-03-13] MEDS: fentaNYL-bupivacaine (epidural) 100 ML BAG EPIDURAL ×2 (00:26→05:12)
[2022-03-13] MEDS: Lactated Ringers 1,000 ML 200 ML IV ×2 (01:20→06:23)
[2022-03-13] MEDS: DiphenhydrAMINE 50 MG/ML Syringe IV (03:28)
[2022-03-13] MEDS: 0.9% Saline Lock 10 ML Syringe IV ×3 (05:11→10:42)
[2022-03-13] MEDS: LACTATED RINGERS 500 ML 999 ML IV (06:26)
[2022-03-13] MEDS: Sodium Citrate/Citric Acid 30 ML UDC PO (06:48)
[2022-03-13] MEDS: Acetaminophen 500 MG Tablet PO (06:48)
[2022-03-13] MEDS: Cefazolin 2 GM in 0.9% Normal Saline 100 ML IV (06:55)
[2022-03-13] MEDS: Methylergonovine 0.2 MG/ML Ampul IM (07:23)
[2022-03-13] MEDS: Oxytocin 15 Units/NS 250ml 15 UNITS/250 ML IV.SOLN 83 UNITS IV (08:05)
--- NOTE | 2022-03-13 08:10 | OP.PCM_ITS ---
Assessment & Plan (1) Arrest of dilation, delivered, current hospitalization: (2) Anemia: COMMENT: secondary to twins, some atony, PPH (3) hemorrhage: COMMENT: methergine hemabate, TXA Maternal Data Information SONDRA Calculator Estimated Delivery Date Method Current WG Current Estimate 03/23/22 LMP (Certain) 38w 5d Other Estimates 03/24/22 Ultrasound #1 38w 4d # 2 Final SONDRA Source: LMP Gestational age: 39 Details Operative Information Date of Procedure: 03/13/22 Pre-Operative Diagnosis: ial AOD 5-6 cm Post-Operative Diagnosis: same Procedure Type: low transverse human service specialist #1: Ellen Redd Type of Anesthesia: Epidural Special Medications: none Drain: Oakley to straight drain Estimated Blood Loss: 1000 Fluids Replaced: crystalloid Findings Description of Procedure: The patient was placed in the dorsal supine position with leftward tilt. Patient was prepped and draped in the normal sterile fashion. Pfannenstiel skin incision was made with the scalpel and carried through to the underlying layer of fascia with the scalpel. Fascia was nicked in the midline and the incision extended laterally. The rectus bellies were dissected off superiorly and inferiorly with out complication both sharply and bluntly. The peritoneum was entered digitally. The incision was stretched and a low transverse uterine incision was made with the scalpel. The infant's head was delivered atraumatically followed by the anterior and posterior shoulders without complication the rest of the infant delivered. The cord was clamped and cut and the was handed off to awaiting nurse. second ba gof water ruptured and the second infants head was delivered without complication followed by the rest of the infant. The placentas were delivered spontaneously immediately following and were noted to be intact and both have a three-vessel cord. The uterus was exteriorized cleared of all clots and debris, and the incision was closed in a double layer closure using #1 Monocryl. The ovaries and fallopian tubes were noted to be within normal limits. The uterus was returned to the maternal abdomen and gutters were cleared of all clots and debris. The perito neum was closed with 3-0 Monocryl in a running fashion. Gloves were changed prior to fascial closure. Fascia was closed with 0 PDS in a running fashion. Subcutaneous tissue was copiously irrigated and the skin was closed with 3-0 Monocryl in a subcuticular fashion. Mepilex dressing was applied without complication. Patient was taken to recovery in stable condition. It was discussed with the patient that based on the clinical information obtained during this encounter, combined with her history, at this time I would recommend vaginal or for future deliveries if further pregnancies are desired. the babies were locked into a position in the uterus that was suspected to prevent descent and that may have precipitated the AOD leading to the primary . Amniotic Membrane Rupture Type: Artificial Amniotic Fluid Description: Clear Placental Delivery Description: Spontaneous Placenta Disposition: [facility] Cord Vessel Description: 3 Vessels Cord Entanglement: None Delayed Cord Clamping: Yes Complications Risks of Surgery Discussed w/Patient: Bleeding, Infection, Need for Future C- Sections and Injury to surrounding structure(s) including bowel and bladder Complications: none Admit VTE Documentation VTE Present on Admission: No VTE Mechan Device Prophylaxis: SCD's Procedures Urinary/Genital [id number]: 67910 Delivery [facility]
--- NOTE | 2022-03-13 08:14 | NURSING ---
Addendum entered by Molly Dinero 03/13/22 08:15: report given at 0707 Original Note: report given to Rhoda Wilkes RN and Francisco Swift RN in OR per Rudolph Kapoor RN, this RN reviewed charting per Herve HIGUERA and agrees with documentation
[2022-03-13] MEDS: Ketorolac 30 MG/ML Syringe IV ×3 (08:35→20:38)
--- NOTE | 2022-03-13 09:45 | NURSING ---
[id number] mariee notified of total lochia amount since delivery being 396 cc no clots seen, fundus remains firm, pt has a slow trickle when palpated
--- NOTE | 2022-03-13 09:53 | NURSING ---
0944 continued - dr mariee notified of BP's rising - orders for hemabate and TXA received
[2022-03-13] MEDS: Carboprost Tromethamine 250 MCG/ML Ampul IM (09:56)
[2022-03-13] MEDS: Ondansetron 4 MG/2 ML Vial IV (10:16)
[2022-03-13 11:16] LABS: Absolute Lymphocyte Count 0.77 X10^3/uL (0.83-4.51); Absolute Neutrophil Count 10.4 X10^3/uL (2.0-7.7); Basophil# 0.02 X10^3/uL; Basophil% 0.2 % (0-1); Eosinophil# 0.01 X10^3/uL; Eosinophils% 0.1 % (0-5); Hematocrit 27.2 % (37-47); Hemoglobin 9.6 g/dL (12.0-15.0); Lymphocyte # 0.77 X10^3/ul (0.83-4.51); Lymphocyte % 6.4 % (19-41); Mean Corp Hgb Conc 35.3 g/dL (32-36); Mean Corpuscular Hgb 33.3 pg (27.0-32.0); Mean Corpuscular Volume 94.4 fL (81-99); Mean Platelet Vol. 11.6 fl (6.2-12.0); Monocyte# 0.74 X10^3/uL; Monocyte% 6.2 % (0-10); NRBC Flagged by Analyzer 0 % (0-5); Neutrophil % 86.4 % (47-70); POSITIVE COUNT YES; Platelet Count 97 K/mm3 (150-450); RBC Distribution Width CV 12.7 % (11.6-14.6); RBC Distribution Width SD 43.5 fl (35.1-43.9); Red Blood Count 2.88 M/mm3 (4.2-5.4)
[2022-03-13 11:17] LABS: Differential Indicated SCAN CRITERIA MET
[2022-03-13 11:38] LABS: Platelet Estimate SLT DEC (ADEQ)
[2022-03-13] MEDS: Lactated Ringers 1,000 ML 100 ML IV ×2 (11:42→20:38)
[2022-03-13] MEDS: Acetaminophen 500 MG Tablet 1000 MG PO ×2 (12:13→17:57)
[2022-03-14] VITALS (7 sets, daily range): BP systolic 114–129; BP diastolic 69–87; PULSE 76–96; RESP 16; TEMP 36.7–36.9; O2SAT 93–98
[2022-03-14] MEDS: Acetaminophen 500 MG Tablet 1000 MG PO ×5 (00:17→23:55)
[2022-03-14] MEDS: Ketorolac 30 MG/ML Syringe IV (02:10)
[2022-03-14 05:09] LABS: Hematocrit 20.8 % (37-47); Hemoglobin 7.3 g/dL (12.0-15.0); Mean Corp Hgb Conc 35.1 g/dL (32-36); Mean Corpuscular Hgb 33.2 pg (27.0-32.0); Mean Corpuscular Volume 94.5 fL (81-99); Mean Platelet Vol. 11.3 fl (6.2-12.0); POSITIVE COUNT YES; Platelet Count 95 K/mm3 (150-450); RBC Distribution Width SD 44.1 fl (35.1-43.9)
--- NOTE | 2022-03-14 07:01 | PN.OBGYN_ITS ---
Subjective Subjective Patient doing well without complaints. Tolerating PO. Ambulating and voiding without difficulty. feeding well. Denies chest pain, shortness of breath, calf pain/swelling, fevers, chills, lightheadedness. Objective Data Objective Data Vital Signs: Vital Signs Temp Pulse Resp BP Pulse Ox O2 Del Method 98.0 F 80 16 114/69 96 Room Air 03/14/22 03:50 03/14/22 06:23 03/14/22 06:23 03/14/22 03:50 03/14/22 06:23 03/14/22 06:23 Oxygen Delivery Method Room Air Weight: 153 lb Body Mass Index (BMI) 28.0 Intake & Output: Intake and Output for Last 24 Hours 03/12/22 03/13/22 03/14/22 23:59 23:59 23:59 Intake Total 3059.17 / 3059.17 5333.27 / 5333.27 603.33 / 603.33 Output Total 200 / 200 2099 / 2099 1800 / 1800 Balance 2859.17 / 2859.17 3234.27 / 3234.27 -1196.67 / -1196.67 Lab / Micro Data Result Diagrams: 03/14/22 05:00 Labs: Laboratory Results - last 24 hr 03/12/22 07:55: Crossmatch See Detail 03/13/22 11:00: WBC 12.0 H, RBC 2.88 L, Hgb 9.6 L, Hct 27.2 L, MCV 94.4, MCH 33.3 H, MCHC 35.3, RDW Std Deviation 43.5, RDW Coeff of Orion 12.7, Plt Count 97 L , MPV 11.6, Immature Gran % (Auto) 0.700, Neut % (Auto) 86.4 H, Lymph % (Auto) 6.4 L, [place] % (Auto) 6.2, Eos % (Auto) 0.1, Baso % (Auto) 0.2, Absolute Neuts (auto) 10.4 H, Absolute Lymphs (auto) 0.77 L, Nucleated RBC % 0, Platelet Estimate SLT DEC 03/14/22 05:00: WBC 13.0 H, RBC 2.20 L, Hgb 7.3 L, Hct 20.8 L, MCV 94.5, MCH 33.2 H, MCHC 35.1, RDW Std Deviation 44.1 H, RDW Coeff of Orion 13.0, Plt Count 95 L, MPV 11.3 ROS Constitutional Constitutional: Reports systems reviewed and no addt'l complaints, except as documented Cardiovascular Cardiovascular: Reports systems reviewed and no addt'l complaints, except as documented Respiratory/Chest Respiratory/Chest: Reports systems reviewed and no addt'l complaints, except as documented Gastrointestinal Gastrointestinal: Reports systems reviewed and no addt'l complaints, except as documented Physical Exam Const alert, oriented x3 and no apparent distress HEENT Head and Scalp: atraumatic Resp normal respiratory effort GI soft to palpation and non-tender Inspection: incision intact, healing well and drainage (none) Bimanual Exam - Vag & Uterus: uterus non-tender Uterus Palpation: uterus fundus firm (below Umbilicus) Assessment & Plan (1) hemorrhage: COMMENT: methergine hemabate, TXA (2) Anemia: COMMENT: secondary to twins, some atony, PPH. type and cross 1 unit- hold. repeat cbc in 4 hours this am (3) delivery delivered: COMMENT: LTCS AOD 6 cm twins poppy pankaj SM 38 IOL PLAN: Plan s/p LTCS PPD # 1 1. routine post care 2. breast feeding- support given 3. rh positive 4. rubella immune
--- NOTE | 2022-03-14 07:04 | DCINST_ITS ---
Discharge Instructions Diet Discharge Diet: No restrictions Activity Discharge Activity: Return to Normal Activity, May Drive (when pain free and off narcotic pain meds), May Shower and May Take a Tub Bath (in 4 weeks) May resume sexual activity in: 6 weeks Weight Bearing Status: Full weight bearing Lifting Restrictions: under 30 lbs for 6 weeks Dressing / Incision Call your doctor if your incision/area has: Continuous Slow Oozing, Sudden Increased Bleeding, Increased Pain/ Swelling, Increased Redness, Foul Smelling Discharge and - Call your doctor if you observe: Fever of 101 or Higher, Using more than 1 pad per hour, Shortness of breath, Chest pain and Uncontrolled pain Suture Line Care: Avoid Pulling/Pushing and Avoid Pinching/Bending Change Dressing in: 1 week (leave open to air after removed) Remove Dressing in: 1 week (if present) Cleanse incision/area with: Soap & Water and Keep Dressing Clean & Dry Follow Up Care Please Follow Up With: Shyann Velazquez MD When: Call to make an appointment with your doctor for a postop visit in 2 and 6 weeks. Test Results: Test results from this visit will be discussed in further detail at your follow- up appointment, if applicable. Discharge Plan Admission Admit Date/Time: 03/12/22 07:00 Attending Provider: Shyann Velazquez Primary Care Provider: Care PhysicianAleisha Primary Discharge Orders/Prescriptions Prescriptions: New oxycodone-acetaminophen [Percocet] 5-325 mg tablet 1 tab PO Q6H PRN (Reason: pain) 7 Days Qty: 20 0RF naproxen [naproxen] 500 mg tablet 500 mg PO BID PRN PRN (Reason: Pain) Qty: 30 1RF iron,carbonyl-vitamin C 100-250 mg tablet 1 tab PO DAILY Qty: 30 12RF Continued prenat.vits,josé manuel,[id number] Tablet 1 tab PO DAILY (DME) breast pump Device See Rx Instructions .ROUTE .MEDSUPPLY Qty: 1 0RF Rx Instructions: As directed Referrals / Follow Up: Care PhysicianAleisha Primary [Primary Care Provider] - Disposition Disposition (needs filled in before D/C Order can be placed): Home, Self Care
[2022-03-14] MEDS: Naproxen 500 MG Tablet PO ×3 (08:57→22:16)
[2022-03-14 09:25] LABS: Absolute Lymphocyte Count 0.76 X10^3/uL (0.83-4.51); Absolute Neutrophil Count 11.7 X10^3/uL (2.0-7.7); Basophil# 0.02 X10^3/uL; Basophil% 0.1 % (0-1); Eosinophil# 0.02 X10^3/uL; Eosinophils% 0.1 % (0-5); Hematocrit 20.9 % (37-47); Hemoglobin 7.4 g/dL (12.0-15.0); Lymphocyte # 0.76 X10^3/ul (0.83-4.51); Lymphocyte % 5.6 % (19-41); Mean Corp Hgb Conc 35.4 g/dL (32-36); Mean Corpuscular Hgb 33.5 pg (27.0-32.0); Mean Corpuscular Volume 94.6 fL (81-99); Mean Platelet Vol. 10.7 fl (6.2-12.0); Monocyte# 0.79 X10^3/uL; Monocyte% 5.8 % (0-10); NRBC Flagged by Analyzer 0 % (0-5); Neutrophil # 11.68 X10^3/uL (2.7-7.7); Neutrophil % 86.6 % (47-70); Platelet Count 100 K/mm3 (150-450); RBC Distribution Width CV 13.1 % (11.6-14.6); RBC Distribution Width SD 44.7 fl (35.1-43.9); Red Blood Count 2.21 M/mm3 (4.2-5.4); White Blood Count 13.5 K/mm3 (4.4-11.0)
[2022-03-14] MEDS: Senna/Docusate Sodium 1 Tablet PO (12:01)
--- NOTE | 2022-03-14 19:12 | NURSING ---
Reviewed and agreed with Shasta RN charting.
--- NOTE | 2022-03-14 19:13 | NURSING ---
Reviewed and agreed with Jaja HIGUERA charting.
[2022-03-15 03:24] VITALS: BP 122/83; PULSE 80; RESP 16; TEMP 36.9; O2SAT 96
[2022-03-15] MEDS: Naproxen 500 MG Tablet PO ×3 (07:05→22:30)
[2022-03-15] MEDS: Acetaminophen 500 MG Tablet 1000 MG PO ×3 (07:05→20:09)
[2022-03-15 08:23] VITALS: BP 131/81; PULSE 79; RESP 16; TEMP 37.3; O2SAT 96
--- NOTE | 2022-03-15 10:09 | PCM.PN.OB ---
Subjective Subjective Patient is laying in bed comfortably without complaints. She states that she slept on an off during the night. Lochia is mild and pain is minimal. She is working with to breast feed. She states that she is not quite ready to discharge to home due to some mild pain and request for care of the twins Objective Data Objective Data Vital Signs: Vital Signs Temp Pulse Resp BP Pulse Ox O2 Del Method 99.1 F 79 16 131/81 H 96 Room Air 03/15/22 08:23 03/15/22 08:23 03/15/22 08:23 03/15/22 08:23 03/15/22 08:23 03/15/22 08:23 Oxygen Delivery Method Room Air Weight: 153 lb Body Mass Index (BMI) 28.0 Intake & Output: Intake and Output for Last 24 Hours 03/13/22 03/14/22 03/15/22 23:59 23:59 23:59 Intake Total 5333.27 / 5333.27 603.33 / 603.33 Output Total 2099 / 2099 1800 / 1800 Balance 3234.27 / 3234.27 -1196.67 / -1196.67 Lab / Micro Data Result Diagrams: 03/14/22 09:14 ROS Constitutional Constitutional: Reports systems reviewed and no addt'l complaints, except as documented Cardiovascular Cardiovascular: Denies chest pain, dizziness, dyspnea or irregular heart rhythm Respiratory/Chest Respiratory/Chest: Denies cough, pain on inspiration or shortness of breath at rest Gastrointestinal Gastrointestinal: Denies abdominal pain, nausea or vomiting Genitourinary Genitourinary: Denies burning urination Musculoskeletal Musculoskeletal: Denies muscle cramps, muscle spasms or muscle weakness Neurologic Neurologic: Denies confusion, dizziness, headache(s) or lack of coordination Psychiatric Psychiatric: Denies anxiety, behavioral changes or depression Physical Exam HEENT normocephalic Resp normal respiratory effort and normal air movement GI soft to palpation, non-tender and non-distended Rectal Exam: other Other Details: Incision is clean, dry, and intact no CVA tenderness Extremity normal to inspection General Extremity: edema bilateral (trace ) Assessment & Plan (1) delivery delivered: COMMENT: LTCS AOD 6 cm twins poppy pankaj SM 38 IOL (2) hemorrhage: COMMENT: methergine hemabate, TXA (3) Anemia: COMMENT: secondary to twins, some atony, PPH. type and cross 1 unit- hold. repeat cbc in 4 hours this am PLAN: Plan s/p LTCS PPD # 2 twin delivery 1. routine post care 2. breast feeding- support given 3. rh positive 4. rubella immune 5. anemia stable and pt is asymptomatic. 6. discuss discharge tomorrow.
[2022-03-15] MEDS: Senna/Docusate Sodium 1 Tablet PO (10:45)
[2022-03-15 13:57] VITALS: BP 136/82; PULSE 71; RESP 16; TEMP 36.6; O2SAT 98
--- NOTE | 2022-03-15 18:42 | NURSING ---
Reviewed and agreed with Jaja HIGUERA charting.
[2022-03-15 20:49] VITALS: BP 136/82; PULSE 78; RESP 16; TEMP 37; O2SAT 97
[2022-03-16 01:20] VITALS: BP 132/85; PULSE 85; RESP 18; TEMP 36.6; O2SAT 97
[2022-03-16] MEDS: Acetaminophen 500 MG Tablet 1000 MG PO ×3 (01:32→13:24)
[2022-03-16] MEDS: Naproxen 500 MG Tablet PO ×2 (05:34→13:24)
--- NOTE | 2022-03-16 08:19 | PCM.PN.OB ---
Subjective Subjective Patient doing well without complaints. using donor milk for twins, pumping/putting to breast first. Tolerating PO. Ambulating and voiding without difficulty. Feeding well. Denies chest pain, shortness of breath, calf pain/swelling, fevers, chills, lightheadedness. Objective Data Objective Data Vital Signs: Vital Signs Temp Pulse Resp BP Pulse Ox O2 Del Method 97.8 F 85 18 132/85 H 97 Room Air 03/16/22 01:20 03/16/22 01:20 03/16/22 01:20 03/16/22 01:20 03/16/22 01:20 03/16/22 01:20 Oxygen Delivery Method Room Air Weight: 153 lb Body Mass Index (BMI) 28.0 Intake & Output: Intake and Output for Last 24 Hours 03/14/22 03/15/22 03/16/22 23:59 23:59 23:59 Intake Total 603.33 / 603.33 Output Total 1800 / 1800 Balance -1196.67 / -1196.67 Lab / Micro Data Attestation: I reviewed the patient's lab results. Result Diagrams: 03/14/22 09:14 Labs: Laboratory Results - last 24 hr 03/12/22 07:55: Crossmatch See Detail Physical Exam Const alert, oriented x3 and no apparent distress HEENT normocephalic Resp normal respiratory effort and normal air movement Cardio regular rate and regular rhythm GI normal to inspection, nondistended, normoactive bowel sounds GI Narrative: fundus firm at u. mild lochia, no clots Extremity normal to inspection and full ROM Skin no rashes or lesions noted Skin Narrative: incision with dressing intact, no drainage noted Assessment & Plan (1) delivery delivered: COMMENT: LTCS AOD 6 cm twins poppy pankaj SM 38 IOL (2) hemorrhage: COMMENT: methergine hemabate, TXA (3) Anemia: COMMENT: secondary to twins, some atony, PPH. type and cross 1 unit- hold. repeat cbc in 4 hours this am PLAN: Plan s/p LTCS PPD # 2 1. routine post care 2. breast feeding- support given 3. rh positive 4. rubella immune 5. d/c home today
[2022-03-16 08:30] VITALS: BP 127/72; PULSE 99; RESP 15; TEMP 37.2; O2SAT 97
[2022-03-16] MEDS: Senna/Docusate Sodium 1 Tablet PO (08:45)
[2022-03-16 12:51] VITALS: BP 134/75; PULSE 86; RESP 15; TEMP 36.8
[2022-03-17 15:58] LABS: Pathology Specimen OB SEE PATHOLOGY REPORT
--- NOTE | 2022-03-24 12:50 | DS.PCM_ITS ---
Providers Date of Admission: 03/12/22 Primary Care Physician: No Primary Care Phys Reason For Visit: INDUCTION/PRIMARY C SECTION DELIVERY Diagnosis Discharge Diagnosis (1) delivery delivered: Status: Acute Code(s): O82 - Encounter for delivery without indication (2) hemorrhage: Status: Acute Code(s): O72.1 - Other immediate hemorrhage (3) Anemia: Status: Acute Code(s): D64.9 - Anemia, unspecified Plan s/p LTCS PPD # 2 1. routine post care 2. breast feeding- support given 3. rh positive 4. rubella immune 5. d/c home today Medications at Discharge Home Medications prenat.vits,josé manuel,[id number] 1 tab PO DAILY 08/06/21 breast pump #1 ea 12/30/21 iron,carbonyl 100 mg-vitamin C 250 mg tablet 1 tab PO DAILY #30 tabs 03/14/22 naproxen 500 mg tablet 500 mg PO BID PRN PRN Pain #30 tabs 03/14/22 oxycodone-acetaminophen 5 mg-325 mg tablet (Percocet) 1 tab PO Q6H PRN pain 7 days #20 tabs 03/14/22 Hospital Course Procedures None Physical Exam Const alert, oriented x3 and no apparent distress HEENT normocephalic Eyes PERRL Neck full ROM Lymph Lymphatic: no lymphadenopathy noted Weight / BMI Weight Weight: 153 lb Body Mass Index (BMI) 28.0 ABG / Lab / Microbiology Data Result Diagrams: 03/14/22 09:14 D/C Instructions Discharge Diet: No restrictions Discharge Activity: Return to Normal Activity and May Not Drive (x2 weeks) May resume sexual activity in: 6 weeks Weight Bearing Status: Full weight bearing Call your doctor if your incision/area has: Continuous Slow Oozing, Sudden Increased Bleeding, Increased Pain/ Swelling, Increased Redness, Foul Smelling Discharge and - Call your doctor if you observe: Fever of 101 or Higher, Using more than 1 pad per hour, Shortness of breath, Chest pain and Uncontrolled pain Suture Line Care: Avoid Pulling/Pushing and Avoid Pinching/Bending Change Dressing in: leave in place till F/U Cleanse incision/area with: Soap & Water and Keep Dressing Clean & Dry Please Follow Up With: Shyann Velazquez MD When: Call to make an appointment with your doctor for a postop visit in 2 and 6 weeks. 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 [place] Discharge Orders/Prescriptions Prescriptions: New oxycodone-acetaminophen [Percocet] 5-325 mg tablet 1 tab PO Q6H PRN (Reason: pain) 7 Days Qty: 20 0RF naproxen [naproxen] 500 mg tablet 500 mg PO BID PRN PRN (Reason: Pain) Qty: 30 1RF iron,carbonyl-vitamin C 100-250 mg tablet 1 tab PO DAILY Qty: 30 12RF Continued prenat.vits,josé manuel,[id number] Tablet 1 tab PO DAILY (DME) breast pump Device See Rx Instructions .ROUTE .MEDSUPPLY Qty: 1 0RF Rx Instructions: As directed Referrals / Follow Up: Care Physician,No Primary [Primary Care Provider] - Disposition Disposition (needs filled in before D/C Order can be placed): Home, Self Care
== END 2022-03-16 14:05 | disposition home or self-care (01) | DRG 787 ==
PROVIDERS: Anesthesiology; Admitting Provider Obstetrics & Gynecology; Referring Provider Obstetrics & Gynecology; Visit Provider Obstetrics & Gynecology
DX: O30.043 Twin pregnancy, dichorionic/diamniotic, third trimester (principal); O72.1 Other immediate postpartum hemorrhage; O64.8XX0 Obstructed labor due to other malposition and malpresentation, not applicable or unspecified; Z37.2 Twins, both liveborn; Z3A.37 37 weeks gestation of pregnancy
CPT/HCPCS: 59025; 59050; 85025; 85027; 86850; 86900; 86901; 86920; 88307; 99218; J7120; A4216; G0378; J2405

== ENCOUNTER → 2023-08-23 | Outpatient (CLI) | payer OTHER, SELFPAY ==
[2023-08-23 09:58] LABS: Absolute Lymphocyte Count 1.58 X10^3/uL (0.83-4.51); Absolute Neutrophil Count 3.2 X10^3/uL (2.0-7.7); Basophil# 0.05 X10^3/uL; Basophil% 0.9 % (0-1); Eosinophil# 0.12 X10^3/uL; Eosinophils% 2.2 % (0-5); Hematocrit 37.2 % (37-47); Hemoglobin 12.4 g/dL (12.0-15.0); Lymphocyte # 1.58 X10^3/ul (0.83-4.51); Lymphocyte % 28.5 % (19-41); Mean Corp Hgb Conc 33.3 g/dL (32-36); Mean Corpuscular Hgb 29.7 pg (27.0-32.0); Mean Corpuscular Volume 89.2 fL (81-99); Mean Platelet Vol. 9.5 fl (6.2-12.0); Monocyte# 0.56 X10^3/uL; Monocyte% 10.1 % (0-10); NRBC Flagged by Analyzer 0 % (0-5); Neutrophil # 3.22 X10^3/uL (2.7-7.7); Neutrophil % 57.9 % (47-70); Platelet Count 232 K/mm3 (150-450); RBC Distribution Width CV 12.5 % (11.6-14.6); RBC Distribution Width SD 40.5 fl (35.1-43.9); Red Blood Count 4.17 M/mm3 (4.2-5.4); White Blood Count 5.6 K/mm3 (4.4-11.0)
== END | disposition home or self-care (01) ==
PROVIDERS: Referring Provider Nurse Practitioner Women's Health; Visit Provider Nurse Practitioner Women's Health
DX: N89.8 Other specified noninflammatory disorders of vagina (principal)
CPT/HCPCS: 36415; 85025; 87070; 87205